=== PATIENT | female | born 2000 | race Caucasian/White ===

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

== ENCOUNTER 2021-05-04 19:23 | Emergency (ER) | payer OTHER ==
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
[2021-05-04 21:43] LABS: Urine Blood Negative (Negative); Urine Glucose Negative (Negative); Urine Protein 2+ (Negative); Urine Specific Gravity 1.025 (1.005-1.030)
[2021-05-04 21:57] LABS: Urine Specific Gravity/Preg 1.025 (1.005-1.030)
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
[2021-05-04] MEDS ORDERED: IBUPROFEN 200 MG TAB PO ONE (23:13)
[2021-05-04] MEDS ORDERED: ONDANSETRON 4 MG (ODT) TAB ONE (23:13)
[2021-05-05 17:25] VITALS: BP 122/89; O2SAT 100
[2021-05-05 17:28] VITALS: TEMP 99.2
== END 2021-05-04 23:01 | disposition home or self-care (01) ==
LOC: ER 19:23
DX: G44.319 Acute post-traumatic headache, not intractable (principal); V49.40XA Driver injured in collision with unspecified motor vehicles in traffic accident, initial encounter; F41.8 Other specified anxiety disorders
CPT/HCPCS: 70450; 72125; 81003; 81025; 99284

== ENCOUNTER 2024-11-15 15:53 | Emergency (ER) | payer OTHER, SELFPAY ==
--- OUTSIDE RECORDS SUMMARY | 2024-11-15 15:55 | XMS REPORT | Continuity of Care Document ---
Author Name Unknown Address [address] [facility] [address] [facility] Address [address] [facility] [address] [place] [address] Care Team Providers Care Cellular Equipment Repairer Name Role Phone Unavailable Unavailable Unavailable Allergies, Adverse Reactions, Alerts Allergy Name Allergy Type Status Severity Reaction(s) Onset Date Inactive Date Treating Clinician Comments Source Zoloft Allergy to substanc e Active [facility] Social History Smoking Status Start Date Stop Date Source Never Smoker [facility] Medications Ordered Medication Name Filled Medication Name Start Date Stop Date Current Medication? Ordering Clinician Indication Dosage Frequency Signature (SIG) Comments Components Source B-12 B-12 No B-12 [facility] melatonin melatonin No melatonin [facility] apple cider vinegar 300 mg tablet Take by oral route. apple cider vinegar 300 mg tablet Take by oral route. No apple cider vinegar 300 mg tablet Take by oral route. [facility] Vital Signs Vital Name Observation Time Observation Value Comments S meñoce Body Weight 2024-04-24 00:00:00 146.4 [lb_av] [facility] BP Systolic 2024-04-24 00:00:00 133 mm[Hg] [facility] Height 2024-04-24 00:00:00 68 [in_i] [facility] BMI (Body Mass Index) 2024-04-24 00:00:00 22.3 kg/m2 [facility] BP Diastolic 2024-04-24 00:00:00 82 mm[Hg] [facility] Start Date/Time End Date/Time Encounter Type Admission Type Attending Clinicians Care Facility Care Department Encounter ID Source 2024-04-24 00:00:00 2024-04-24 00:00:00 DANICA Dyson: [address], [place] [address] , Ph. [facility], [facility] - [id number] jeremiah Fierro* [id number] [facility]
[2024-11-15 16:29] LABS: Specific Gravity 1.013 (1.005-1.030); Urine Bacteria <20 /HPF (<20); Urine Bilirubin NEGATIVE (Negative); Urine Blood Negative (Negative); Urine Clarity Extremely Turbid (Clear); Urine Color Light-Yellow (Yellow); Urine Culture Reflex Order REFLEXED; Urine Glucose NEGATIVE (Negative); Urine Ketones NEGATIVE (Negative); Urine Micro Reflex YN NO BILL MICROSCOPIC; Urine Mucus Slight /HPF (None Seen); Urine Nitrite NEGATIVE (Negative); Urine Protein NEGATIVE (Negative); Urine RBC <5 /HPF (None Seen); Urine Urobilinogen Normal (Normal); Urine WBC 20-50 /HPF (<5)
--- NOTE | 2024-11-15 16:34 | ER ---
Nurse's Notes [facility] Name: Rose Bernal Age: 24 yrs Sex: Female : 2000 Arrival Date: 11/15/2024 Time: 15:53 Bed 7 Private MD: Diagnosis: UTI/ Urinary tract infection, site not specified Presentation: 11/15 16:03 Chief complaint: Left low back pain, burning with urination and blood in urine 2 days hb ago. Coronavirus screen: At this time, the client does not indicate any symptoms associated with coronavirus-19. Ebola Screen: No symptoms or risks identified at this time. Initial Sepsis Screen: Does the patient meet any 2 criteria? No. Patient's initial sepsis screen is negative. Does the patient have a suspected source of infection? No. Patient's initial sepsis screen is negative. Risk Assessment: Do you want to hurt yourself or someone else? Patient reports no desire to harm self or others. Onset of symptoms was November 12, 2024. 16:03 Method Of Arrival: Ambulatory hb 16:03 Acuity: REFUGIO 4 hb Historical: - Allergies: 16:05 Zoloft; hb - Home Meds: 16:05 BuSpar Oral daily [Active]; Lexapro 10 mg Oral tab 1 tab once daily [Active]; hb - PMHx: 16:05 Anxiety; Depression; hb - PSHx: 16:05 tooth extraction; hb - Immunization history:: Adult Immunizations up to date. - Infectious Disease History:: Denies. - Social history:: Smoking status: Patient denies any tobacco usage or history of. Screenin:27 [facility] ED Fall Risk Assessment (Adult) History of falling in the last 3 months, kc6 including since admission No falls in past 3 months (0 pts) Confusion or Disorientation No (0 pts) Intoxicated or Sedated No (0 pts) Impaired Gait No (0 pts) Mobility Assist Device Used No (0 pt) Altered Elimination No (0 pt) Score/Fall Risk Level 0 - 2 = Low Risk Oriented to surroundings, Maintained a safe environment, Educated pt \T\ family on fall prevention, incl call for assistance when getting out of bed. Abuse screen: Denies threats or abuse. Denies injuries from another. Nutritional screening: No deficits noted. Tuberculosis screening: No symptoms or risk factors identified. Assessment: 16:42 General: Appears in no apparent distress. comfortable, well groomed, well developed, kc6 Behavior is calm, cooperative, appropriate for age. Pain: Complains of pain in left low back Pain does not radiate. Quality of pain is described as aching, dull, Pain began 2-3 days ago. Is intermittent. Neuro: Level of Consciousness is awake, alert, obeys commands, Oriented to person, place, time, situation, Appropriate for age. Cardiovascular: Capillary refill < 3 seconds. Respiratory: Airway is patent Trachea midline Respiratory effort is even, unlabored, Respiratory pattern is regular, symmetrical. GI: No signs and/or symptoms were reported involving the gastrointestinal system. : Urine is cloudy, Reports burning with urination, urinary frequency. EENT: No signs and/or symptoms were reported regarding the EENT system. Derm: No signs and/or symptoms reported regarding the dermatologic system. Skin is intact, is healthy with good turgor, Skin is pink, warm \T\ dry. Musculoskeletal: No signs and/or symptoms reported regarding the musculoskeletal system. Circulation, motion, and sensation intact. Range of motion: intact in all extremities. Vital Signs: 16:03 BP 171 / 98; Pulse 108; Resp 16; Temp 97.8(TE); Pulse Ox 100% on R/A; Pain 4/10; hb 16:28 BP 99 / 73; Pulse 81; Resp 16 S; Pulse Ox 100% on R/A; kc6 16:03 Pain Scale: Adult hb ED Course: 15:57 Patient arrived in ED. ra3 15:57 [facility] sb4 15:57 Lucien Alicea MD is Attending Physician. sb4 15:59 Arm band placed on Patient placed in an exam room, on a stretcher. ll1 16:05 Triage completed. hb 16:26 Siri Diamond RN is Primary Nurse. kc6 16:27 Patient has correct armband on for positive identification. Bed in low position. Call kc6 light in reach. Side rails up X 1. Pulse ox on. NIBP on. Door closed. Noise minimized. Lights dimmed. Pillow given. 16:27 Urine collected: clean catch specimen, cloudy. Patient maintains SpO2 saturation kc6 greater than 95% on room air. 16:52 No provider procedures requiring assistance completed. Patient did not have IV access kc6 during this emergency room visit. Administered Medications: 16:42 Drug: Trimethoprim-Sulfamethoxazole PO (160 mg-800 mg (DS) 1 tablet PO once Route: PO; kc6 16:52 Follow up: Response: No adverse reaction kc6 16:42 Drug: Ketorolac IM 30 mg IM once Route: IM; Site: right deltoid; kc6 16:52 Follow up: Response: No adverse reaction; Pain is decreased kc6 16:42 Drug: Ondansetron PO 4 mg PO once Route: PO; kc6 16:52 Follow up: Response: No adverse reaction kc6 Medication: 16:52 VIS not applicable for this client. kc6 Outcome: 16:33 Discharge ordered by . sb4 16:52 Discharged to home ambulatory, kc6 16:52 Condition: good 16:52 Discharge instructions given to patient, Instructed on discharge instructions, follow up and referral plans. medication usage, Demonstrated understanding of instructions, follow-up care, medications, Prescriptions given X 1, 16:52 Patient left the ED. kc6 Signatures: Christiana Chacon RN RN Andre Rodas RN RN ll1 Siri Diamond RN RN kc6 Clotilde Hager, PA-C PA-Eugenie [email or web address] Do Castillo ra3 Corrections: (The following items were deleted from the chart) 16:05 16:05 Allergies: No Known Allergies; hb hb 16:05 16:05 PMHx: Anxiety; hb hb
--- NOTE | 2024-11-15 16:34 | EDPHYS ---
Physician Documentation [facility] Name: Rose Bernal Age: 24 yrs Sex: Female : 2000 Arrival Date: 11/15/2024 Time: 15:53 Bed 7 Private MD: ED Physician Lucien Alicea HPI: 11/15 16:11 This 24 yrs old Female presents to ER via Ambulatory with complaints of Low Back Pain - sb4 Blood in urine. 16:11 patient reports burning with urination that progressed to blood in her urine and now sb4 left low back pain. states her symptoms began about 4 days ago after not urinating after sexual intercourse. states the burning with urination and the blood in her urine have improved but the pain in her back has persisted. denies any fever, chills, nausea, or vomiting. Historical: - Allergies: 16:05 Zoloft; hb - Home Meds: 16:05 BuSpar Oral daily [Active]; Lexapro 10 mg Oral tab 1 tab once daily [Active]; hb - PMHx: 16:05 Anxiety; Depression; hb - PSHx: 16:05 tooth extraction; hb - Immunization history:: Adult Immunizations up to date. - Infectious Disease History:: Denies. - Social history:: Smoking status: Patient denies any tobacco usage or history of. ROS: 16:11 Constitutional: Negative for fever, chills, and weight loss, sb4 16:11 Back: Positive for flank pain, on the left, 16:11 Back: 16:11 : Positive for urinary symptoms, hematuria, burning with urination, 16:11 All other systems are negative, Exam: 16:11 Constitutional: This is a well developed, well nourished patient who is awake, alert, sb4 and in no acute distress. Head/Face: Normocephalic, atraumatic. Eyes: Extra-ocular motions intact. Periorbital areas with no swelling, redness, or edema. ENT: Mucous membranes moist. Cardiovascular: Regular rate and rhythm with a normal S1 and S2. Respiratory: No increased work of breathing, no retractions or nasal flaring. Abdomen/GI: Soft, non-tender, no distension. Skin: Warm, dry with normal turgor. Normal color with no rashes, no lesions, and no evidence of cellulitis. 16:11 Back: CVA tenderness, that is mild, is noted on the left, Vital Signs: 16:03 BP 171 / 98; Pulse 108; Resp 16; Temp 97.8(TE); Pulse Ox 100% on R/A; Pain 4/10; hb 16:28 BP 99 / 73; Pulse 81; Resp 16 S; Pulse Ox 100% on R/A; kc6 16:03 Pain Scale: Adult hb MDM: 15:59 Medical Screening Exam initiated sb4 16:33 Data reviewed: vital signs, nurses notes, lab test result(s), and as a result, I will sb4 discharge patient. Counseling: I had a detailed discussion with the patient and/or guardian regarding the historical points, exam findings, and any diagnostic results supporting the discharge/admit diagnosis, lab results, the need for outpatient follow up, for definitive care, to return to the emergency department if symptoms worsen or persist or if there are any questions or concerns that arise at home. 11/15 16:05 Order name: UAM; Complete Time: 16:31 sb4 11/15 16:05 Order name: Test, Urine; Complete Time: 16:31 sb4 11/15 16:32 Order name: Urine Culture EDMS Administered Medications: 16:42 Drug: Trimethoprim-Sulfamethoxazole PO (160 mg-800 mg (DS) 1 tablet PO once Route: PO; kc6 16:52 Follow up: Response: No adverse reaction kc6 16:42 Drug: Ketorolac IM 30 mg IM once Route: IM; Site: right deltoid; 6 16:52 Follow up: Response: No adverse reaction; Pain is decreased kc6 16:42 Drug: Ondansetron PO 4 mg PO once Route: PO; kc6 16:52 Follow up: Response: No adverse reaction kc6 Disposition Summary: 11/15/24 16:33 Discharge Ordered Notes: Location: Home sb4 Problem: new sb4 Symptoms: have improved sb4 Condition: Stable sb4 Diagnosis - UTI/ Urinary tract infection, site not specified sb4 Followup: sb4 - With: Emergency Department - When: As needed - Reason: Fever > 102 F, Worsening of condition Discharge Instructions: - Discharge Summary Sheet sb4 - Urinary Tract Infection, Adult, [id number] sb4 Forms: - Antibiotic Education sb4 - Patient Portal Instructions sb4 - Leadership Thank You Letter sb4 Prescriptions: - Bactrim DS 800-160 mg Oral Tablet - take 1 tablet ORAL route every 12 hours for 10 days; 20 tablet; Refills: 0, sb4 Product Selection Permitted Signatures: Dispatcher [employer] Christiana Dodge RN RN Siri Ann RN RN kcClotilde Ramirez, ELMER PAYNE sb4 Corrections: (The following items were deleted from the chart) 16:05 16:05 Allergies: No Known Allergies; hb hb 16:05 16:05 PMHx: Anxiety; hb hb
[2024-11-15] MEDS ORDERED: ONDANSETRON 4 MG (ODT) TAB ONE (16:37)
[2024-11-15] MEDS ORDERED: KETOROLAC 30 MG/ML INJ ONE (16:37)
[2024-11-15] MEDS ORDERED: SMZ./TMP. 800/160 MG TABLET ONE (16:37)
[2024-11-15 17:07] VITALS: TEMP 97.8; O2SAT 100
[2024-11-15 17:09] VITALS: BP 99/73
== END 2024-11-15 16:52 | disposition home or self-care (01) ==
LOC: ER 15:53
DX: N39.0 Urinary tract infection, site not specified (principal)
CPT/HCPCS: 81001; 81025; 87077; 87086; 87088; 87186; 96372; 99284; Q0162